=== PATIENT | female | born 1975 | race Caucasian/White ===

== ENCOUNTER 2020-01-07 08:24 | Emergency (ER) | payer SELFPAY ==
[~2020-01-07] VITALS: Ht 177.8 cm; Wt 70.3 kg
--- NOTE | 2020-01-07 08:27 | NUR ---
ERMD at bedside for MSE
--- NOTE | 2020-01-07 08:28 | NUR ---
ERMD at bedside performing I&D. All supplies pulled out from pyxis by ERMD.
[2020-01-07 08:51] VITALS: BP 128/75
--- NOTE | 2020-01-07 08:51 | NUR ---
Patient discharged to home in stable condition. Written and verbal after care instructions given. Patient verbalizes understanding of instructions. Stressed follow up or return to ER for worsening s/s.
== END 2020-01-07 08:52 | disposition home or self-care (01) ==
LOC: ER 08:24
DX: K12.2 Cellulitis and abscess of mouth (principal)
CPT/HCPCS: 10060; 99283; J3490; A4663

== ENCOUNTER 2020-01-09 12:42 | Emergency (ER) | payer SELFPAY ==
[~2020-01-09] VITALS: Ht 175.3 cm; Wt 70.3 kg
--- NOTE | 2020-01-09 13:06 | NUR ---
Patient discharged to home in stable condition. Written and verbal after care instructions given. Patient verbalizes understanding of instructions. Stressed follow up or return to ER for worsening s/s. Patient ambulated with steady gait. NAD noted
[2020-01-09 13:35] VITALS: BP 128/73
== END 2020-01-09 13:06 | disposition home or self-care (01) ==
LOC: ER 12:42
DX: Z48.817 Encounter for surgical aftercare following surgery on the skin and subcutaneous tissue (principal); K12.2 Cellulitis and abscess of mouth; Z88.2 Allergy status to sulfonamides
CPT/HCPCS: A4663

== ENCOUNTER 2020-05-19 19:10 | Emergency (ER) | payer SELFPAY ==
[~2020-05-19] VITALS: Ht 160 cm; Wt 65.8 kg
[2020-05-19 19:45] LABS: *BILIRUBIN,URIN NEGATIVE (NEGATIVE); *BLOOD, URINE NEGATIVE (NEGATIVE); *CLARITY,URINE CLEAR (CLEAR); *COLOR,URINE YELLOW (YELLOW); *KETONES,URINE NEGATIVE (NEGATIVE); *UROBILINOGEN,URINE 0.2 E.U./dl (NORMAL); LEUKOCYTE ESTERASE ,URINE NEGATIVE (NEGATIVE); NITRITE, URINE NEGATIVE (NEGATIVE); PH,URINE 6.5 (5.0-8.0); UGLUCOSE NEGATIVE (NEGATIVE)
[2020-05-19] MEDS ORDERED: IV NORMAL SALINE 1000 ML BAG IV ONE (19:45)
[2020-05-19 19:46] LABS: *URINE HCG, QUAL NEGATIVE (NEGATIVE)
[2020-05-19 19:52] LABS: BASOPHILS % (AUTO) 0.1 % (0.0-2.0); EOSINOPHILS % (AUTO) 0.3 % (0.0-7.0); HEMATOCRIT 34.2 % (31.2-41.9); HEMOGLOBIN 10.6 g/dL (10.9-14.3); LYMPHOCYTES # (AUTO) 0.4 K/uL (20.0-40.0); LYMPHOCYTES % (AUTO) 4.4 % (20.5-51.5); MEAN CORPUSCULAR HEMOGLOBIN 21.3 uug (24.7-32.8); MEAN CORPUSCULAR HGB CONC 31 g/dL (32.3-35.6); MEAN CORPUSCULAR VOLUME 68.6 fL (75.5-95.3); MONOCYTES # (AUTO) 0.5 K/uL (2.0-10.0); MONOCYTES % (AUTO) 5.9 % (0.0-11.0); NEUTROPHILS % (AUTO) 89.3 % (38.5-71.5); PLATELET COUNT (AUTO) 409 K/uL (179-408); RED BLOOD CELL COUNT(AUTO) 4.99 MIL/uL (3.63-4.92); WHITE BLOOD COUNT (AUTO) 8.9 K/uL (3.8-11.8)
[2020-05-19 20:12] LABS: CREATININE 0.7 mg/dL (0.6-1.3); POTASSIUM 3.9 mmol/L (3.5-5.1)
[2020-05-19 20:17] LABS: BILIRUBIN,DIRECT 0.1 mg/dL (0.0-0.2); BILIRUBIN,TOTAL 0.4 mg/dL (0.2-1.0)
[2020-05-19 20:30] LABS: LYMPHOCYTES % (MANUAL) 4 % (20-40); MONOCYTES % (MANUAL) 5 % (2-10); NEUTROPHILS % (MANUAL) 91 % (42-75)
[2020-05-19] MEDS ORDERED: KETOROLAC TROMETHAMINE 15 MG INJ ONE (20:59)
[2020-05-19] MEDS ORDERED: KETOROLAC TROMETHAMINE 15 MG INJ IVP ONE (21:00)
[2020-05-19 21:56] VITALS: BP 109/62
== END 2020-05-19 21:57 | disposition home or self-care (01) ==
LOC: ER 19:12
DX: N20.0 Calculus of kidney (principal); R03.0 Elevated blood-pressure reading, without diagnosis of hypertension; F17.210 Nicotine dependence, cigarettes, uncomplicated; Z88.2 Allergy status to sulfonamides; D64.9 Anemia, unspecified
CPT/HCPCS: 36415; 76770; 80048; 80076; 81003; 83605; 84145; 84703; 85007; 85025; 85730; 87040 ×2; 87086; 96361; 96374; 99284; 99406; J1885; 70030-TC; A4663; J7030